=== PATIENT | female | born 1970 | race American Indian/Alaskan Native ===

== ENCOUNTER 2018-09-18 17:19 | Emergency (ER) | payer OTHER ==
[2018-09-18 17:45] VITALS: BP 153/105
[2018-09-18] MEDS ORDERED: BANOPHEN PO ONE (17:49)
--- NOTE | 2018-09-18 17:50 | Emergency Department Report ---
Blank Doc - Documentation Documentation: This is a 48 y.o. female that presents to ED with left sided facial swelling. Patient went to the dentist last Eyal and given amoxicillin and tylenol #3. Reports swelling to left side of face increased and difficulty breathing out of left nostril. Patient think this is the first time taking codeine. Given benadryl. Fast track for further evaluation.
[2018-09-18] MEDS ORDERED: BENADRYL PO ONE (17:55)
[2018-09-18] MEDS ORDERED: NORCO 5/325 PO ONE (19:38)
[2018-09-18] MEDS ORDERED: CLEOCIN 900 MG/50 mL 900 MG/50 ML BAG IV ONE (19:38)
[2018-09-18 20:10] LABS: Basophils # (Auto) 0.1 K/mm3 (0.0-0.1); Basophils % (Auto) 0.6 % (0.0-1.8); Eosinophils # (Auto) 0.2 K/mm3 (0.0-0.4); Hematocrit 40.3 % (30.3-42.9); Hemoglobin 13.6 gm/dl (10.1-14.3); Lymphocytes # (Auto) 1.7 K/mm3 (1.2-5.4); Lymphocytes % (Auto) 16.2 % (13.4-35.0); Mean Corpuscular HGB Conc 34 % (30-34); Mean Corpuscular Volume 93 fl (79-97); Monocytes # (Auto) 1.1 K/mm3 (0.0-0.8); Monocytes % (Auto) 10.5 % (0.0-7.3); Platelet Count 300 K/mm3 (140-440); Red Blood Count 4.33 M/mm3 (3.65-5.03); Red Cell Distribution Width 14.3 % (13.2-15.2)
[2018-09-18 20:25] LABS: Alanine Aminotransferase 37 units/L (7-56); Albumin 3.7 g/dL (3.9-5); BUN/Creatinine Ratio 8; Blood Urea Nitrogen 7 mg/dL (7-17); Calcium 9.4 mg/dL (8.4-10.2); Hemolysis Index 5
--- NOTE | 2018-09-18 20:51 | Emergency Department Report ---
ED ENT HPI - General Chief complaint: Chest Pain Stated complaint: CHEST PAIN/FACE/ (L) SWOLLEN/HBP Time Seen by Provider: 09/18/18 17:44 Source: patient Mode of arrival: Ambulatory Limitations: No Limitations - History of Present Illness Initial comments: Patient is a 48-year-old female who presents for dental abscess with facial swelling 1 week sensation started Jeff has radiated up to her left eye . States she saw dentist on 2 days ago and started on amoxicillin experiencing chest tightness today which brought her to present to ED there is no shortness of breath is no wheezing there is no stridor patient is tolerating by mouth intake there is no fevers no chills nauseavomiting MD complaint: tooth pain Onset/Timin -: week(s) Location: tooth # (19) Severity: moderate Severity scale (0 -10): 8 Quality: aching, sharp Consistency: constant Improves with: none Worsens with: eating Context-Epistaxis: other (dental abscess ) Context- Dental: poor dental care, other (abscess ) Associated Symptoms: gum swelling, other (facial swelling ) - Related Data Previous Rx's Medication Instructions Recorded Last Taken Type Chlorhexidine Mouthwash [Peridex] 15 ml MM BID #1 bottle 09/18/18 Unknown Rx Clindamycin [Clindamycin CAP] 300 mg PO Q6H #40 capsule 09/18/18 Unknown Rx Fluticasone [Flonase] 1 spray NS QDAY #1 bottle 09/18/18 Unknown Rx predniSONE [Deltasone] 40 mg PO QDAY 5 Days #10 tab 09/18/18 Unknown Rx traMADol [Ultram] 50 mg PO Q6HR PRN #12 tablet 09/18/18 Unknown Rx Allergies Allergy/AdvReac Type Severity Reaction Status Date / Time No Known Allergies Allergy Unverified 09/18/18 17:24 ED Dental HPI - General Chief complaint: Chest Pain Stated complaint: CHEST PAIN/FACE/ (L) SWOLLEN/HBP Time Seen by Provider: 09/18/18 17:44 Source: patient Mode of arrival: Ambulatory Limitations: No Limitations - Related Data Previous Rx's Medication Instructions Recorded Last Taken Type Chlorhexidine Mouthwash [Peridex] 15 ml MM BID #1 bottle 09/18/18 Unknown Rx Clindamycin [Clindamycin CAP] 300 mg PO Q6H #40 capsule 09/18/18 Unknown Rx Fluticasone [Flonase] 1 spray NS QDAY #1 bottle 09/18/18 Unknown Rx predniSONE [Deltasone] 40 mg PO QDAY 5 Days #10 tab 09/18/18 Unknown Rx traMADol [Ultram] 50 mg PO Q6HR PRN #12 tablet 09/18/18 Unknown Rx Allergies Allergy/AdvReac Type Severity Reaction Status Date / Time No Known Allergies Allergy Unverified 09/18/18 17:24 ED Review of Systems ROS: Stated complaint: CHEST PAIN/FACE/ (L) SWOLLEN/HBP Other details as noted in HPI Constitutional: denies: chills, fever Eyes: denies: eye pain, eye discharge, vision change ENT: dental pain, other (dental abscess ). denies: ear pain, throat pain Respiratory: denies: cough, shortness of breath, wheezing Cardiovascular: denies: chest pain, palpitations Endocrine: no symptoms reported Gastrointestinal: denies: abdominal pain, nausea, diarrhea Genitourinary: denies: urgency, dysuria, discharge Musculoskeletal: denies: back pain, joint swelling, arthralgia Skin: denies: rash, lesions Neurological: denies: headache, weakness, paresthesias Psychiatric: denies: anxiety, depression Hematological/Lymphatic: denies: easy bleeding, easy bruising ED Past Medical Hx - Past Medical History Previous Medical History?: Yes Hx Hypertension: Yes - Surgical History Past Surgical History?: No - Social History Smoking Status: Never Smoker Substance Use Type: None - Medications Home Medications: Home Medications Medication Instructions Recorded Confirmed Last Taken Type Chlorhexidine Mouthwash [Peridex] 15 ml MM BID #1 bottle 09/18/18 Unknown Rx Clindamycin [Clindamycin CAP] 300 mg PO Q6H #40 capsule 09/18/18 Unknown Rx Fluticasone [Flonase] 1 spray NS QDAY #1 bottle 09/18/18 Unknown Rx predniSONE [Deltasone] 40 mg PO QDAY 5 Days #10 tab 09/18/18 Unknown Rx traMADol [Ultram] 50 mg PO Q6HR PRN #12 tablet 09/18/18 Unknown Rx ED Physical Exam - General Limitations: No Limitations General appearance: alert, in no apparent distress - Head Head exam: Present: atraumatic, normocephalic - Eye Eye exam: Present: normal appearance, PERRL, EOMI, periorbital swelling, periorbital tenderness Pupils: Present: normal accommodation - ENT ENT exam: Present: normal orophraynx, mucous membranes moist, TM's normal bilaterally, normal external ear exam, other (left lateral maxillary sinus tenderness swelling that was 4Essentially is was much) - Expanded ENT Exam Expanded Ear exam: Present: normal external inspection Mouth exam: Present: tongue normal. Absent: trismus, tongue elevation Teeth exam: Present: dental caries, fractured tooth # (19), dental tenderness #, gingival enlargement, other (facial swelling dental abscess ) Throat exam: Positive: normal inspection, other (mild uvula swelling no stridor ). Negative: tonsillar erythema, tonsillomegaly, tonsillar exudate, R peritonsillar mass, L peritonsillar mass - Neck Neck exam: Present: normal inspection, full ROM, lymphadenopathy. Absent: tenderness, meningismus, other - Respiratory Respiratory exam: Present: normal lung sounds bilaterally. Absent: respiratory distress, wheezes, stridor, chest wall tenderness - Cardiovascular Cardiovascular Exam: Present: regular rate, normal rhythm, normal heart sounds. Absent: systolic murmur, diastolic murmur, rubs, gallop - GI/Abdominal GI/Abdominal exam: Present: soft, normal bowel sounds. Absent: tenderness, rebound, mass, hernia - Rectal Rectal exam: Present: deferred - External exam: Present: normal external exam - Extremities Exam Extremities exam: Present: normal inspection, full ROM, normal capillary refill. Absent: tenderness, pedal edema, joint swelling - Back Exam Back exam: Present: normal inspection, full ROM. Absent: tenderness, CVA tenderness (R), CVA tenderness (L), muscle spasm, paraspinal tenderness, vertebral tenderness, rash noted - Neurological Exam Neurological exam: Present: alert, oriented X3, CN II-XII intact, normal gait. Absent: motor sensory deficit - Psychiatric Psychiatric exam: Present: normal affect, normal mood - Skin Skin exam: Present: warm, dry, intact, normal color. Absent: rash ED Course Vital Signs 09/18/18 09/18/18 09/18/18 17:44 19:55 20:00 Temperature 99.1 F Pulse Rate 85 Respiratory 18 18 17 Rate Blood Pressure 153/105 09/18/18 21:00 Temperature Pulse Rate Respiratory 16 Rate Blood Pressure ED Medical Decision Making - Lab Data Result diagrams: 09/18/18 19:45 09/18/18 19:45 - EKG Data EKG shows normal: sinus rhythm Rate: normal (5 or 2020 of) - EKG Data Interpretation: normal EKG (ekg interp by ed attending, NSR no st elevation no ectopy ) - Radiology Data Radiology results: report reviewed, image reviewed rdering Physician: ERROL SAAVEDRA NP Date of Service: 09/18/18 Procedure(s): XR chest routine 2V Accession Number(s): [id number] cc: ERROL SAAVEDRA NP Fluoro Time In Minutes: PROCEDURE: XR CHEST ROUTINE 2V TECHNIQUE: PA and lateral chest radiographs were obtained. HISTORY: chest pain COMPARISONS: None. FINDINGS: Heart: Normal. Mediastinum/Vessels: Normal. Lungs/Pleural space: Normal. Bony thorax: No acute osseous abnormality. IMPRESSION: Normal examination. This document is electronically signed by Seng John MD., September 18 2018 10:48:22 PM ET Transcribed By: CO Dictated By: SENG JOHN MD Electronically Authenticated By: SENG JOHN MD Signed Date/Time: 09/18/182249 DD/ 42 TD/TT: 09/18/182142 cc: ERORL SAAVEDRA NP PROCEDURE: CT FACIAL BONES WO CON TECHNIQUE: Computerized tomography of the facial bones and soft tissues with axial and coronal sections performed from the cranial aspect of the frontal sinuses to the caudal portion of the mandible without contrast material. Automated exposure control, adjustment of mA and/or kV according to patient size, or iterative reconstruction dose optimization techniques were u tilized. CT DOSE LENGTH PRODUCT: mGycm HISTORY: facial swelling dental abscess COMPARISONS: None . FINDINGS: Bones: No significant abnormality . Paranasal sinuses: There is mucosal thickening in the left maxillary sinus. There is fluid in the sphenoid sinus. . Soft tissues: There is left facial and periorbital soft tissue swelling. . Other: None . IMPRESSION: There is no bony abnormality. There is mucosal thickening in the left maxillary sinus. There is fluid in the sphenoid sinus. . There is left facial and periorbital soft tissue swelling. There is no abscess. . This document is electronically signed by Seng John MD., September 18 2018 10:39:40 PM ET Transcribed By: CO Dictated By: SENG JOHN MD Electronically Authenticated By: SENG JOHN MD Signed Date/Time: 09/18/182241 DD/ 52 TD/TT: 09/18/182052 - Medical Decision Making CT facial there is no focal abscess there is sinus mucosal thickening with some facial and mild periorbital swelling however this is not periorbital cellulitis cyanosis dental and sinus cavity swelling is greatly reduced after antibiotics given in ED pain is relieved there is no trismusis tolerating by mouth intake there is no ear throat pain there is no eye pain patient is PERRLA EOMI there is no eye entrapment we'll change antibiotics to clindamycin by mouth twice amoxicillin patient will follow up with dental in 2 days at [facility] . Final treatment and evaluation of multiple dental caries patient has been counseled on [place] return to ED IE increase in facial swelling fevers chills nausea vomiting decreased vision and headache patient verbalized agreement and understanding with same. Patient will be DC'd home in stable condition at this time Critical care attestation.: If time is entered above; I have spent that time in minutes in the direct care of this critically ill patient, excluding procedure time. ED Disposition Clinical Impression: Dental abscess Sinusitis Qualifiers: Sinusitis location: maxillary Chronicity: acute Recurrence: recurrent Qualified Code(s): J01.01 - Acute recurrent maxillary sinusitis Disposition: DC-01 TO HOME OR SELFCARE Is pt being admited?: No Does the pt Need Aspirin: No Condition: Stable Instructions: Dental Abscess (ED), Sinusitis (ED) Prescriptions: Chlorhexidine Mouthwash [Peridex] 15 ml MM BID #1 bottle Clindamycin [Clindamycin CAP] 300 mg PO Q6H #40 capsule Fluticasone [Flonase] 1 spray NS QDAY #1 bottle predniSONE [Deltasone] 40 mg PO QDAY 5 Days #10 tab traMADol [Ultram] 50 mg PO Q6HR PRN #12 tablet PRN Reason: Pain Referrals: PATRICIA WEINER MD [Primary Care Provider] - 2-3 Days Forms: Work/School Release Form(ED) Time of Disposition: 23:20
--- NOTE | 2018-09-18 22:41 | Cat Scan Report ---
PROCEDURE: CT FACIAL BONES WO CON TECHNIQUE: Computerized tomography of the facial bones and soft tissues with axial and coronal secti ons performed from the cranial aspect of the frontal sinuses to the caudal portion of the mandible wi thout contrast material. Automated exposure control, adjustment of mA and/or kV according to patient size, or iterative reconstruction dose optimization techniques were utilized. CT DOSE LENGTH PRODUCT: mGycm HISTORY: facial swelling dental abscess COMPARISONS: None . FINDINGS: Bones: No significant abnormality . Paranasal sinuses: There is mucosal thickening in the left maxillary sinus. There is fluid in the sp henoid sinus. . Soft tissues: There is left facial and periorbital soft tissue swelling. . Other: None . IMPRESSION: There is no bony abnormality. There is mucosal thickening in the left maxillary sinus. There is fluid in the sphenoid sinus. . There is left facial and periorbital soft tissue swelling. There is no abscess. . This document is electronically signed by Seng Moreira MD., September 18 2018 10:39:40 PM ET
--- NOTE | 2018-09-18 22:50 | XRay Report ---
PROCEDURE: XR CHEST ROUTINE 2V TECHNIQUE: PA and lateral chest radiographs were obtained. HISTORY: chest pain COMPARISONS: None. FINDINGS: Heart: Normal. Mediastinum/Vessels: Normal. Lungs/Pleural space: Normal. Bony thorax: No acute osseous abnormality. IMPRESSION: Normal examination. This document is electronically signed by Seng Moreira MD., September 18 2018 10:48:22 PM ET
[2018-09-18] MEDS ORDERED: ULTRAM PO ONE (23:07)
== END 2018-09-18 23:25 | disposition home or self-care (01) ==
LOC: ED 17:19
DX: K04.7 Periapical abscess without sinus (principal); J01.01 Acute recurrent maxillary sinusitis; I10 Essential (primary) hypertension
CPT/HCPCS: 36415; 70486; 71046; 80053; 82140; 84484; 85025; 86140; 96365

== ENCOUNTER 2018-09-19 11:07 | Emergency (ER) | payer OTHER ==
--- NOTE | 2018-09-19 11:30 | Emergency Department Report ---
Blank Doc - Documentation Documentation: This is a 48-year-old female that presents with left sided facial swelling and pain. Patient was seen yesterday and had a CT done and given antibiotics. Patient stated has not filled it yet. Stated is getting worse. This initial assessment/diagnostic orders/clinical plan/treatment(s) is/are subject to change based on patient's health status, clinical progression and re- assessment by fellow clinical providers in the ED. Further treatment and workup at subsequent clinical providers discretion. Patient/guardians urged not to elope from the ED as their condition may be serious if not clinically assessed and managed. Initial orders include: 1- Patient sent to [facility] for further evaluation and treatment 2- Labs are within 24 hours
--- NOTE | 2018-09-19 13:04 | Emergency Department Report ---
Chief Complaint: Dental/Oral Stated Complaint: L SIDE OF FACE SWOLLEN Time Seen by Provider: 09/19/18 11:25 - HPI History of Present Illness: Patient is a 48-year-old female who was seen here at 8:45 PM last night turns back presents for dental abscess with facial swelling 1 week sensation started . States that this morning she still has some swelling so she came back in. Patient states that she has not taken her medication that she was prescribed sent home with yesterday. complaint: tooth pain Onset/Timin -: week(s) Location: tooth # (19) Severity: moderate Severity scale (0 -10): 8 Quality: aching, sharp Consistency: constant Improves with: none Worsens with: eating Context-Epistaxis: other (dental abscess ) Context- Dental: poor dental care, other (abscess ) Associated Symptoms: gum swelling, other (facial swelling ) - ROS Review of Systems: As noted in HPI - Exam Vital Signs: Vital Signs 09/19/18 11:26 Temperature 98.1 F Pulse Rate 74 Respiratory 18 Rate Blood Pressure 150/93 O2 Sat by Pulse 98 Oximetry Physical Exam: ENT ENT exam: Present: normal orophraynx, mucous membranes moist, TM's normal bilaterally, normal external ear exam, other (left lateral maxillary sinus tenderness swelling that was 4Essentially is was much) - Expanded ENT Exam Expanded Ear exam: Present: normal external inspection Mouth exam: Present: tongue normal. Absent: trismus, tongue elevation Teeth exam: Present: dental caries, fractured tooth # (19), dental tenderness #, gingival enlargement, other (facial swelling dental abscess ) Throat exam: Positive: normal inspection, other (mild uvula swelling no stridor ). Negative: tonsillar erythema, tonsillomegaly, tonsillar exudate, R peritonsillar mass, L peritonsillar mass - Neck Neck exam: Present: normal inspection, full ROM, lymphadenopathy. Absent: tenderness, meningismus, other MSE screening note: Focused history and physical exam performed. Due to findings the following was ordered: ED Medical Decision Making - Medical Decision Making I reassured patient and that she needs to seek upper prescriptions from the pharmacy and start taking it. I reassured patient and I washes as taken on clindamycin and pain medication symptoms are resolved. I also discussed the patient to apply heat compression 3 times a day to help with inflammation. I discussed with the patient and her CT scan was negative and that she would need to start her instructions as instructed yesterday. Patient was more receptive today and states that she will do as instructed. Discussed with patient after swelling and infection is gone down she is able to follow up with her dentist. Vital signs are normal patient's airway is not compromised she understands his instructions and will follow up ED Disposition for MSE Clinical Impression: Dental abscess Disposition: TO HOME OR SELFCARE Is pt being admited?: No Does the pt Need Aspirin: No Condition: Stable Instructions: Heat Pack Application (ED) Additional Instructions: Make sure to follow up with the dentist as discussed. Take all your medications as you've been prescribed. If you have any worsening symptoms or develop new symptoms please return to ED immediately. [facility]Other] - 3-5 Days [facility] [Outside] - 3-[address] [facility] [Outside] - 3-5 Days Forms: Work/School Release Form(ED) Time of Disposition: 13:03
== END 2018-09-19 13:13 | disposition home or self-care (01) ==
LOC: ED 11:07
DX: K04.7 Periapical abscess without sinus (principal)
CPT/HCPCS: 99282